=== PATIENT | female | born 2000 | race African-American/Black ===

== ENCOUNTER 2023-11-05 19:50 | Emergency (ER) | payer OTHER, SELFPAY ==
[2023-11-05 19:52] VITALS: BP 124/77; PULSE 80; RESP 16; TEMP 36.6; O2SAT 100; BMI 34.0
--- NOTE | 2023-11-05 21:17 | CT_ITS ---
We are attempting to reach an attending provider to discuss findings. An addendum with communication details will be sent when the communication is complete. STUDY: CT SOFT TISSUE NECK WITH CONTRAST REASON FOR EXAM: Female, 23 years old. Right tonsillar swelling RADIATION DOSAGE (If Supplied By Facility): CTDIvol = ( 17.24 ) mGy, DLP = ( 499.68 ) mGycm TECHNIQUE: The patient was scanned in a multi-detector CT scanner. High resolution transaxial imaging was performed following intravenous administration of IV 75mL Isovue-370. Sagittal and coronal images were reconstructed. Individualized dose optimization techniques were used for this CT. COMPARISON: None. FINDINGS: Normal bilateral parotid glands. Normal bilateral content creation manager spaces. Normal bilateral parapharyngeal spaces. Normal bilateral carotid spaces. Normal bilateral sublingual and submandibular glands and spaces. Diffuse hyperemia involving the posterior nasopharyngeal region/pharyngeal tonsils suggestive of tonsillitis and pharyngitis. Normal perivertebral space. There is diffuse enlargement of the palatine tonsils with the subtle areas of hypodensities noted, the one on the right measuring 1.0 x 1.5 cm and the one on the left measuring 0.5 x 0.5 cm suggestive of early tonsillar abscesses with no delineated wall. The visualized tongue, tongue base and oropharynx are normal. There is extensive bilateral cervical lymphadenopathy, largest lymph node on the left measuring 2.1 x 1.5 cm and largest on the right measuring 3.0 x 1.5 cm, most compatible with nonspecific inflammatory response. There is no demonstrated solid or cystic mass lesion. There is no abnormal contrast enhancement. Normal epiglottis, bilateral vallecula and hypopharynx. The pre-epiglottic and paraglottic adipose spaces are normal. Normal visualized bilateral piriform sinuses, aryepiglottic folds, vocal cords, and arytenoid-cricoid articulations. Normal subglottic trachea. Normal bilateral lobes of the thyroid gland. There is a right upper lobe nodule measuring 3.8 mm which could represent infectious etiology versus neoplasm (image 2, series 103). Normal visualized paranasal sinuses. Normal visualized cervical spine. CT/Soft Tissue Neck WITH Contrast IMPRESSION: Pharyngeal tonsillitis and pharyngitis. Possible early abscess formation with poorly delineated wall and therefore drainability questionable, noted within the palatine tonsils, the one on the right measuring 2.1 x 1.5 cm and the one on the left measuring 3.0 x 1.5 cm. Small nodule in the right lung apex measuring 3.8 mm which could represent inflammatory etiology with neoplasm not excluded. Clinical correlation recommended and if indicated, follow-up with CT chest in nonacute setting recommended. Electronically Signed: Rubia Stroud MD at 23:13 EST ,
--- NOTE | 2023-11-05 21:20 | EX.ED.VIS.UR ---
HPI HPI - URI History of Present Illness Chief Complaint: Sore Throat Informant: patient Onset/Context/Timing Onset: Days (5) Context: Gradual Onset Timing: Continuous Quality: Pressure, sharp Location: Right tonsil Worsened by: - (Nothing) Relieved by: - (Hot tea and cold water) Associated Symptoms Associated Symptoms: Positive for Nasal Congestion and Shortness of Breath; Negative for Headache, Sinus Pressure, Myalgias, Nausea, Vomiting, Diarrhea, Chest Pain, Nonproductive cough, Hemoptysis or Productive Cough Narrative Narrative: Patient presents with sore throat that has been getting progressively worse over the past 5 days. Patient states he was recently diagnosed with mononucleosis. Patient states that over the past few days though her right tonsil has gotten more swollen and more painful. Patient states she noted exudate on her right tonsil. Patient describes her pain as pressure and sharp. Patient states that it is better with hot tea and cold liquids. Patient states nothing makes it worse. Patient admits to some nasal congestion. Patient also admits to some shortness of breath. Patient denies any nausea or vomiting. Patient denies any cough. Patient denies any chest pain. ROS ROS ED Constitutional Constitutional ED: Denies chills or fever(s) Eyes Eyes: Denies blurry vision or change in vision ENT ENT ED: Reports rhinorrhea and sore throat Cardiovascular Cardiovascular: Denies chest pain or palpitations Respiratory/Chest Respiratory/Chest: Reports dyspnea; Denies cough Gastrointestinal Gastrointestinal: Denies nausea or vomiting Genitourinary Genitourinary ED: Denies dysuria or hematuria Musculoskeletal Musculoskeletal: Denies back pain or neck pain Integumentary Denies abscess or rash Neurologic Neurologic: Denies headache(s) or weakness Allergic/Immunologic Allergic/Immunologic ED: Denies mouth swelling or urticaria PFSH PFSH Medical History no medical history no medical history Home Medications clindamycin HCl 300 mg capsule (Cleocin HCl) 300 mg PO Q6H #40 CAPSULES 11/05/23 [Rx Last Taken Unknown] norethindrone 1 mg-ethinyl estradiol 20 mcg (21)-iron 75 mg (7) tablet 1 tab PO DAILY 11/05/23 [History Last Taken Unknown] Allergy/AdvReac Type Severity Reaction Status Date / Time Penicillins AdvReac Mild Itching Verified 11/05/23 19:52 Surgical History no surgical history no surgical history Social History Smoking Status: Never smoker EXAM Physical Exam Const Vital Signs: 11/05/23 19:52 Temperature 98 F Temperature Source Temporal Pulse Rate 80 Respiratory Rate 16 Blood Pressure 124/77 H Blood Pressure Mean 92 Pulse Ox 100 Oxygen Delivery Method Room Air Positive well nourished and well developed General Appearance ED: well developed and NAD HEENT Reports moist mucous membranes Throat: tonsils abnormal right erythema, exudates and hypertrophy Neck supple and no JVD General: lymphadenopathy anterior cervical Resp normal respiratory effort and clear to auscultation bilaterally Cardio Rate: regular rate Rhythm: regular rhythm GI non-tender and non-distended Palpation: soft Neuro oriented x3, CN's II-XII intact bilaterally and no sensory deficits noted Sensorium / Orientation: alert Motor Exam: strength 5/5 throughout Psych mental status grossly normal MDM MDM MDM Narrative Medical decision making narrative: Differential diagnosis includes tonsillitis, peritonsillar abscess, strep pharyngitis, and viral illness. CBC will be obtained to assess for leukocytosis and anemia. Basic metabolic profile will be obtained to assess for electrolyte abnormality and renal function. Rapid strep will be obtained to assess for strep pharyngitis. CT scan of the soft tissue neck will be obtained to assess for peritonsillar abscess. Lab Data Attestation: I reviewed the patient's lab results. Lab results narrative: CBC was reviewed and was within normal limits. Basic metabolic profile was reviewed and was within normal limits. Rapid strep was reviewed and was negative. Labs: Laboratory Results - last 24 hr 11/05/23 21:30 WBC 6.7 RBC 4.70 Hgb 13.9 Hct 41.2 MCV 87.7 MCH 29.6 MCHC 33.7 RDW Std Deviation 41.4 RDW Coeff of Koko 12.9 Plt Count 257 MPV 10.1 Immature Gran % (Auto) 0.100 Neut % (Auto) 35.0 L Lymph % (Auto) 51.1 H [place] % (Auto) 12.5 H Eos % (Auto) 0.9 Baso % (Auto) 0.4 Absolute Neuts (auto) 2.3 Absolute Lymphs (auto) 3.43 Nucleated RBC % 0 Atypical Lymphocytes 2+ Platelet Estimate ADEQUATE RBC Morphology N CHROM Anisocytosis RARE Sodium 138 Potassium 3.6 Chloride 108 H Carbon Dioxide 27.0 Anion Gap 3 L BUN 5 L Creatinine 0.91 Estim Creat Clear Calc 117.84 Est GFR (MDRD) Af Amer 101 Est GFR (MDRD) Non-Af 83 BUN/Creatinine Ratio 5.5 L Glucose 93 Calcium 9.6 Radiography Diagnostic Testing: CT scan of the soft tissue neck was obtained. There are are possible developing early abscesses in the palate teen tonsils that are too small to be drained at this time. There is pharyngeal tonsillitis and pharyngitis. Airway is patent. This was interpreted by the radiologist was also independently reviewed by myself. Treatment and Re-Evaluation Narrative: Patient was given IV fluids. Patient is feeling better on reevaluation. Patient was advised of her findings. Patient was given a dose of clindamycin here. Patient was given a prescription for clindamycin. Patient was given referral for ENT for follow-up care in 3 to 5 days. Patient was instructed to return if worse in any way. Patient understood and was agreeable with the plan. All questions were answered. Discharge Plan Triage Chief Complaint: Sore Throat ED Provider: Rafat Ceja Dx/Rx/DC Orders Clinical Impression: Abscess of tonsil, Acute tonsillitis Instructions: ED Peritonsillar Abscess Prescriptions: New clindamycin HCl [Cleocin HCl] 300 mg capsule 300 mg PO Q6H Qty: 40 0RF No Action norethindrone-e.estradiol-iron 1 mg-20 mcg (21)/75 mg (7) tablet 1 tab PO DAILY Patient Comments: take 1 tablet by mouth once daily Primary Care Provider: Care Physician,No Primary Referrals: Baldo Stewart MD [Med Staff - Active Staff] - 3-5 Days Care Physician,No Primary [Primary Care Provider] - Disposition Disposition: Home, Self Care
--- OUTSIDE RECORDS SUMMARY | 2023-11-05 21:29 | XMS RPT_ITS | CCD ---
Author Name Unknown Address Formerly [facility] [email or web address] [address] [place], [place] [id number] Organization [facility] Care Team Providers Care Teacher'S Aide Name Role Phone Unavailable Primary Care Provider MIGUEL Alberts Referring Unavailable Allergies Allergy Classification Reported Allergen(s) Allergy Type Date of Onset Reaction(s) Facility (2 sources) Penicillins; Translations: [PENICILLINS] Drug Allergy 11-01-2023 Unknown [facility] Medications Completed/Discontinued Medications Medication Drug Class(es) Dates Sig (Normalized) Sig (Original) Ethinyl Estradiol / Ferrous fumarate / Norethindrone (1 source) Estrogen Start: 07-25-2023 take 1 tablet by mouth once Norethin Darrell-Eth Estrad-FE 1 mg-20 mcg (21)/75 mg (7) per tablet Take 1 tablet by mouth every afternoon. 0 07/25/2023 Active Problems Problem Classification Problem Date Documented Da te Episodic/Chronic Other upper respiratory infections (2 sources) Viral pharyngitis; Translations: [Acute pharyngitis, unspecified] Onset: 11-04-2023 11-04-2023 Episodic Results Test Name Value Interpretation Reference Range Facil ity Vital Signs Date Time Vital Sign Value Performing Clinician Faci lity 11-04-2023 16:31-0500 Body temperature 99 [degF] Michael Talamantes APRN.CNP Work Phone: [facility] 11-04-2023 16:31-0500 Body weight 99.88 kg Michael Talamantes APRN.CNP Work Phone: [facility] 11-04-2023 16:31-0500 Diastolic blood pressure 64 mm[Hg] Michael Talamantes APRN.CNP Work Phone: [facility] 11-04-2023 16:31-0500 Heart rate 84 /min Michael Talamantes APRN.CNP Work Phone: [facility] 11-04-2023 16:31-0500 Respiratory rate 18 /min Michael Talamantes APRN.CNP Work Phone: [facility] 11-04-2023 16:31-0500 SaO2% (BldA) [Mass fraction] 99 % Michael Talamantes APRN.CNP Work Phone: [facility] 11-04-2023 16:31-0500 Systolic blood pressure 104 mm[Hg] Michael Talamantes APRN.CNP Work Phone: [facility] Encounters Encounter Date Encounter Type Care Provider Facility Start: 11-04-2023 End: 11-05-2023 ambulatory MIGUEL GRAVES Facility:[facility] Start: 11-04-2023 End: 11-04-2023 Patient encounter procedure Michael Talamantes APRN.CNP Work Phone: [facility] Plan of Treatment Date Care Activity Detail Author Start: 08-21-2027 Urine microalbumin profile DTa P,Tdap,Td Vaccine (2 - Td or Tdap) [facility] Start: 09-30-2023 Depression Assessment Depression Ass essment [facility] Start: 2023 Screening for malign ant neoplasm of cervix Pap Testing [facility] Start: 05-31-2023 Influenza vaccination Influenza Vacc ine (#1) [facility] Start: 2020 GC (Gonorrhea) Scree kaylene () GC (Gonorrhea) Screening () [facility] Start: 2020 Hepatitis C screening Hepatitis C Sc reening [facility] Start: 2020 HIV screening HIV Screening [facility] Start: 2020 Screening for Chlamy vane trachomatis Chlamydia Screening () [facility] Start: 2018 Meningococcal B Vacc ine: Consider Based On Risk (1 of 2 - Patient Seeks Protection) Meningococcal B Vaccine: Consider Based On Risk (1 of 2 - Patient Seeks Protection) [facility] Start: 2016 Peds To Adult Transi tion Annual Assessment Peds To Adult Transition Annual Assessment [facility] Start: 2014 Peds To Adult Transi tion Initial Discussion Peds To Adult Transition Initial Discussion [facility] Start: 2011 HPV Vaccine (1 - 2-d ose series) HPV Vaccine (1 - 2-dose series) [facility] Start: 2002 Covid-19 Vaccine (#1) Covid-19 Vacci ne (#1) [facility] Start: 2002 Hepatitis B Vaccine (1 of 3 - 3-dose series) Hepatitis B Vaccine (1 of 3 - 3-dose series) [facility] Payers Date Payer Category Payer Unknown [facility] [id number] 2023-Present [phone] [address] [place] [address] Indemnity [id number] 2023 Unknown [id number] Social History Date Type Detail Facility Start: 11-01-2023 Tobacco smoking stat [facility] Never smoked tobacco [facility] Start: 11-01-2023 Tobacco use and exposure Smoke less tobacco non-user [facility] Start: 11-04-2023 History of Social function [facility] Start: 11-04-2023 Tobacco use panel [facility] Start: 2002 Sex Assigned At Not on file [facility] Progress note 11-04-2023 Note Date & Type Note Facility 11-04-2023 Note HNO ID: [id number] Author: MICHAEL TALAMANTES APRN.MOLD PULLER Service: ? Author Type: Nurse Practitioner Type: Progress Notes Filed: 11/04/2023 17:09 Note Text: SUBJECTIVE: Caryn Montes De Oca is a 23 year old female. Who presents today with sore throat for a week. She had a strep test 3 days ago and it was negative. A mono test was ordered for today but she has not had it yet. She states that her throat is still sore. She is taking tylenol for the symptoms. She has not had exposure to anyone who is sick. She had a covid test Saturday and it was negative. She is concerned about other causes of a sore throat and why she is not feeling better yet. She denies any abd pain HPI History reviewed. No pertinent past medical history. No family history on file. Social History Tobacco Use Smoking status: Never Smokeless tobacco: Never ALLERGIES Allergen Reactions Penicillins Unknown Current Outpatient Medications Medication Sig Dispense Refill Norethin Darrell-Eth Estrad-FE 1 mg-20 mcg (21)/75 mg (7) per tablet Take 1 tablet by mouth every afternoon. medroxyPROGESTERone (PROVERA) 5 mg tablet 1 tablet with food daily for 5 days every 90 days Orally Once a day for 5 days No current facility-administered medications for this visit. OBJECTIVE: BP 104/64 Pulse 84 Temp 37.2 ?C (99 ?F) (Tympanic) Resp 18 Wt 99.9 kg (220 lb 3.2 oz) SpO2 99% ROS all other systems reviewed and are negative Physical Exam Constitutional: Well developed, well nourished, NAD, AANDO X3. ENT: Head is atraumatic, airway patent, mucosal membranes moist pink + exudate is noted on the tonsils no HOSIERY LOOPER able to swallow no trismus Cardiac: Heart tone normal rate and rhythm Respiratory: Breath sounds clear : no CVA tenderness MS: no swelling, tenderness or deformity in upper or lower extremities, no midline tenderness in cervical, thoracic or lumbar spine. Neuro: strength sensation and coordination intact. CN II-XII grossly intact, Skin: warm and dry with out rash, lesion or ecchymosis on exposed skin Psych: alert appropriate, speech clear It was a pleasure to take care of Caryn Montes De Oca today. We discussed the difference between bacterial and viral tonsillitis and the causes and treatment of both. She has had negative strep and covid testing already, she will have mono testing today. Her results will be back in the morning. She may take motrin and tylenol for any discomfort, she will increase her fluids. She is downloading my chart but we will call her if she is unable to set it up. Patient will follow up with family physician. They may return to the Urgent Care or go to the ER for worsening symptoms or concerns. Patient verbalized understanding of plan of care and is in agreement. ASSESSMENT/PLAN: 1. Viral pharyngitis - ICD9: 462, ICD10: J02.9 [place] testing ( previously ordered) Michael Talamantes APRN.NAHEED [facility] History of Present illness Narrative 11-04-2023 Michael Talamantes APRN.NAHEED - 11/04/2023 4:37 PM EST Note Date & Type Note Facility 11-04-2023 History of Presen t illness Narrative SUBJECTIVE: Caryn Montes De Oca is a 23 year old female. Who presents today with sore throat for a week. She had a strep test 3 days ago and it was negative. A mono test was ordered for today but she has not had it yet. She states that her throat is still sore. She is taking tylenol for the symptoms. She has not had exposure to anyone who is sick. She had a covid test Saturday and it was negative. She is concerned about other causes of a sore throat and why she is not feeling better yet. She denies any abd pain HPI History reviewed. No pertinent past medical history. No family history on file. Social History Tobacco Use Smoking status: Never Smokeless tobacco: Never ALLERGIES Allergen Reactions Penicillins Unknown Current Outpatient Medications Medication Sig Dispense Refill Norethin Darrell-Eth Estrad-FE 1 mg-20 mcg (21)/75 mg (7) per tablet Take 1 tablet by mouth every afternoon. medroxyPROGESTERone (PROVERA) 5 mg tablet 1 tablet with food daily for 5 days every 90 days Orally Once a day for 5 days No current facility-administered medications for this visit. OBJECTIVE: BP 104/64 Pulse 84 Temp 37.2 C (99 F) (Tympanic) Resp 18 Wt 99.9 kg (220 lb 3.2 oz) SpO2 99% ROS all other systems reviewed and are negative Physical Exam Constitutional: Well developed, well nourished, NAD, A&O X3. ENT: Head is atraumatic, airway patent, mucosal membranes moist pink + exudate is noted on the tonsils no HOSIERY LOOPER able to swallow no trismus Cardiac: Heart tone normal rate and rhythm Respiratory: Breath sounds clear : no CVA tenderness MS: no swelling, tenderness or deformity in upper or lower extremities, no midline tenderness in cervical, thoracic or lumbar spine. Neuro: strength sensation and coordination intact. CN II-XII grossly intact, Skin: warm and dry with out rash, lesion or ecchymosis on exposed skin Psych: alert appropriate, speech clear It was a pleasure to take care of Caryn Montes De Oca today. We discussed the difference between bacterial and viral tonsillitis and the causes and treatment of both. She has had negative strep and covid testing already, she will have mono testing today. Her results will be back in the morning. She may take motrin and tylenol for any discomfort, she will increase her fluids. She is downloading my chart but we will call her if she is unable to set it up. Patient will follow up with family physician. They may return to the Urgent Care or go to the ER for worsening symptoms or concerns. Patient verbalized understanding of plan of care and is in agreement. ASSESSMENT/PLAN: 1. Viral pharyngitis - ICD9: 462, ICD10: J02.9 [place] testing ( previously ordered) Michael Talamantes APRN.MOLD PULLER documented in this encounter [facility] Progress note 11-01-2023 Note Date & Type Note Facility 11-01-2023 Note HNO ID: [id number] Author: MIGUEL GRAVES PA-C Service: ? Author Type: Physician Healthcare Educator Type: Progress Notes Filed: 11/01/2023 13:32 Note Text: This note was created using Pharnextriter. Subjective Caryn Montes De Oca is a 23 year old female. HPI Presents with a chief complaint of ear pain, postnasal drip, sore throat over the past day. She was seen by the nurse at the [facility] who did a strep and COVID which were negative. She told her she thought she had some fluid in her ears and they were red so told her to come over here to be seen. No cough. No vomiting or diarrhea. Temp at the [facility] was 99.7. Review of Systems HENT: Positive for congestion, ear pain, postnasal drip, sore throat and tinnitus. Respiratory: Negative. Cardiovascular: Negative. Gastrointestinal: Negative. All other systems reviewed and are negative. History reviewed. No pertinent past medical history. Current Outpatient Medications Medication Sig Dispense Refill Norethin Darrell-Eth Estrad-FE 1 mg-20 mcg (21)/75 mg (7) per tablet Take 1 tablet by mouth every afternoon. medroxyPROGESTERone (PROVERA) 5 mg tablet 1 tablet with food daily for 5 days every 90 days Orally Once a day for 5 days No current facility-administered medications for this visit. No past surgical history on file. No family history on file. Social History Tobacco Use Smoking status: Never Smokeless tobacco: Never Objective BP 122/80 Pulse 78 Temp 36.6 ?C (97.9 ?F) (Tympanic) Resp 18 Wt 99.7 kg (219 lb 12.8 oz) SpO2 98% Physical Exam Vitals reviewed. Constitutional: Appearance: Normal appearance. HENT: Head: Normocephalic and atraumatic. Right Ear: Tympanic membrane, ear canal and external ear normal. Left Ear: Tympanic membrane, ear canal and external ear normal. Nose: Congestion present. Mouth/Throat: Mouth: Mucous membranes are moist. Pharynx: Pharyngeal swelling, oropharyngeal exudate and posterior oropharyngeal erythema present. No uvula swelling. Tonsils: Tonsillar exudate present. No tonsillar abscesses. 1+ on the right. 1+ on the left. Cardiovascular: Rate and Rhythm: Regular rhythm. Heart sounds: Normal heart sounds. Pulmonary: Effort: Pulmonary effort is normal. Breath sounds: Normal breath sounds. Musculoskeletal: Cervical back: Neck supple. Lymphadenopathy: Cervical: Cervical adenopathy present. Skin: General: Skin is warm and dry. Neurological: Mental Status: She is alert. Assessment and Plan ASSESSMENT/PLAN: 1. Sore throat - ICD9: 462, ICD10: J02.9 (primary diagnosis) - Group A strep molecular testing negative Discussed if sore throat not improving by Saturday to do mono testing at that point. She is not in any contact sports. Discussed red flags for ER care.-Patient agreeable. - MONOTEST, INFECTIOUS MONO 2. Otalgia of both ears - ICD9: 388.70, ICD10: H92.03 Likely eustachian tube dysfunction. Normal TM and middle ear exam. Discussed using Flonase and Sudafed [id number]. Patient agreeable. Miguel Graves PA-C [facility] Evaluation note Note Date & Type Note Facility documented in this encounter [facility] Summary Purpose Family History No Family History Records Found Advance Directives No Advanced Directives Records Found Additional Source Comments Source Comments (unrecognize d section and content) In the event this informatio n is protected by the Federal Confidentiality of Alcohol and Drug Abuse Patient Records regulations: The Federal rules restrict any use of the information to criminally investigate or prosecute any alcohol or drug abuse patient.[facility] Reason for Visit (unrecogniz ed section and content) INFORMATION SOURCE (unrecogn ized section and content) FOR RECORDS PERTAINING TO PATIENTS WHO ARE OR HAVE BEEN ENROLLED IN A CHEMICAL DEPENDENCY/SUBSTANCEABUSE PROGRAM, SOME INFORMATION MAY BE OMITTED. This clinical summary was aggregated from multiple sources. Caution should be exercised in using it in the provision of clinical care. This summary normalizes information from multiple sources, and as a consequence, information in this document may materially change the coding, format and clinical context of patient data. In addition, data may be omitted in some cases. CLINICAL DECISIONS SHOULD BE BASED ON THE PRIMARY CLINICAL RECORDS. [employer] [facility]. provides no warranty or guarantee of the accuracy or completeness of information in this document.
[2023-11-05] MEDS: 0.9% Normal Saline (1000mL) 1,000 ML 1000 ML IV (21:33)
[2023-11-05 21:39] LABS: Absolute Lymphocyte Count 3.43 X10^3/uL (0.83-4.51); Absolute Neutrophil Count 2.3 X10^3/uL (2.0-7.7); Basophil# 0.03 X10^3/uL; Basophil% 0.4 % (0-1); Eosinophil# 0.06 X10^3/uL; Eosinophils% 0.9 % (0-5); Hematocrit 41.2 % (37-47); Hemoglobin 13.9 g/dL (12.0-15.0); Lymphocyte # 3.43 X10^3/ul (0.83-4.51); Lymphocyte % 51.1 % (19-41); Mean Corp Hgb Conc 33.7 g/dL (32-36); Mean Corpuscular Hgb 29.6 pg (27.0-32.0); Mean Corpuscular Volume 87.7 fL (81-99); Mean Platelet Vol. 10.1 fl (6.2-12.0); Monocyte# 0.84 X10^3/uL; Monocyte% 12.5 % (0-10); NRBC Flagged by Analyzer 0 % (0-5); Neutrophil # 2.34 X10^3/uL (2.7-7.7); POSITIVE MORPHOLOGY YES; Platelet Count 257 K/mm3 (150-450); RBC Distribution Width CV 12.9 % (11.6-14.6); RBC Distribution Width SD 41.4 fl (35.1-43.9); White Blood Count 6.7 K/mm3 (4.4-11.0)
[2023-11-05 21:52] LABS: Differential Indicated SCAN CRITERIA MET
[2023-11-05 22:08] LABS: Anisocytosis RARE; Atypical Lymphocyte 2+ %; Platelet Estimate ADEQUATE (ADEQ); Red Cell Morphology N CHROM NORMAL (NORM C&C)
[2023-11-05 22:25] LABS: Anion Gap 3 (5-15); BUN 5 mg/dL (7-18); BUN/Creat Ratio 5.5 RATIO (10-20); Calcium,Total 9.6 mg/dL (8.5-10.1); Chloride 108 mmol/L (98-107); Creatinine, Serum 0.91 mg/dL (0.55-1.02); EST Glomerular Filtration Rate 83 mL/min (>60); Est Glom Filt Rate - Afr Amer 101 mL/min (>60); Estimated Creatinine Clearance 117.84 ml/min; Glucose 93 mg/dL (74-106); Potassium 3.6 mmol/L (3.5-5.1); Sodium Level 138 mmol/L (136-145)
[2023-11-05] MEDS: Clindamycin HCl 150 MG Capsule 300 MG PO (23:30)
[2023-11-05 23:31] VITALS: PULSE 84; RESP 16; TEMP 36.9; O2SAT 99
== END 2023-11-05 23:33 | disposition home or self-care (01) ==
PROVIDERS: Emergency Provider Emergency Medicine; Visit Provider Emergency Medicine
DX: J36 Peritonsillar abscess (principal); R06.02 Shortness of breath
CPT/HCPCS: 70491; 80048; 85025; 87651; 96360; 99282; J7030; Q9967; A4216